=== PATIENT | female | born 2000 | race Caucasian/White ===

== ENCOUNTER 2019-02-15 12:18 | Emergency (ER) | payer MEDICAID ==
[2019-02-15] MEDS: LIDOCAINE 4% CR TOP (12:55)
[2019-02-15] MEDS: LIDOCAINE 1% (MDV) 10 ML INJ INJ (13:08)
[2019-02-15] MEDS: LIDOCAINE 1% (MPF) 5 ML VIAL INJ (13:08)
== END 2019-02-15 13:45 | disposition home or self-care (01) ==
LOC: FTE 12:18
DX: N75.1 Abscess of Bartholin's gland (principal)
CPT/HCPCS: 56420; 99283-25

== ENCOUNTER 2019-02-23 12:52 | Emergency (ER) | payer MEDICAID ==
[2019-02-23] MEDS: LIDOCAINE 1% (MPF) 5 ML VIAL INJ (15:10)
== END 2019-02-23 15:46 | disposition home or self-care (01) ==
LOC: FTE 12:52
DX: N75.0 Cyst of Bartholin's gland (principal)
CPT/HCPCS: 56420; 99282-25